=== PATIENT | female | born 1940 | race Caucasian/White ===

== ENCOUNTER 2017-07-21 12:53 | Emergency (ER) | payer MEDICARE ==
--- NOTE | 2017-07-21 14:24 | RAD ---
RIGHT FOOT THREE VIEWS: HISTORY: Foot pain. FINDINGS: Small enthesophytes from the calcaneus. Tarsals appear intact. Metatarsals are intact. Phalanges are intact. Mild degenerative changes at the first MTP joint. Loss of joint space and irregularity of the articular surfaces of the IP joint of the great toe. Slight deformity of the distal second and third proximal phalanges suggest old fractures. No evidence of acute fracture identified. IMPRESSION: There are chronic findings, as described above. No evidence of acute abnormality. POS: BARON
--- NOTE | 2017-07-21 14:29 | RAD ---
THREE VIEWS RIGHT ANKLE: 07/21/2017 HISTORY: Right ankle pain after tripping at home. FINDINGS: There is a slightly oblique, slightly , and minimally displaced fracture involving the dist al right fibula, with the lateral fracture fragment displaced laterally by approximately 2 mm. Ther e is slight irregularity involving the most inferior aspect of the medial malleolus, which could rep resent a very tiny avulsion type injury; however, there does not appear to be appreciable soft tissu e swelling in this region. There is subcutaneous soft tissue swelling anterior and lateral to the a nkle, as well as involving the more distal visualized lower extremity. Surgical clips are seen ante rior to the tibia. Minimal posterior and plantar calcaneal enthesophytes are seen. IMPRESSION: 1. Minimally and displaced fracture involving the distal right fibula with overlying subc utaneous soft tissue swelling. 2. Slight irregularity at the most inferior aspect of the medial malleolus, which could potentially represent a tiny avulsion type injury; although there is no significant overlying soft tissue swell ing in this region. POS: BARON
== END 2017-07-21 14:26 | disposition home or self-care (01) ==
LOC: SCSER 12:53
DX: S82.831A Other fracture of upper and lower end of right fibula, initial encounter for closed fracture (principal); E03.9 Hypothyroidism, unspecified; E78.5 Hyperlipidemia, unspecified; I10 Essential (primary) hypertension; F03.90 Unspecified dementia, unspecified severity, without behavioral disturbance, psychotic disturbance, mood disturbance, and anxiety; Z87.891 Personal history of nicotine dependence; Z79.02 Long term (current) use of antithrombotics/antiplatelets; Z79.899 Other long term (current) drug therapy; W22.8XXA Striking against or struck by other objects, initial encounter
CPT/HCPCS: 29515